=== PATIENT | male | born 1945 | race Caucasian/White ===

== ENCOUNTER 2016-06-21 06:14 | Observation (INO) | payer MEDICARE, OTHER ==
[~2016-06-21] VITALS: Ht 180.3 cm; Wt 85.7 kg
[2016-06-21 00:04] VITALS: BP 154/82
[2016-06-21] MEDS ORDERED: MORPHINE SULFATE 4 MG/ML CPJ (NOT FOR IM USE) IV STA (06:32)
[2016-06-21] MEDS ORDERED: SODIUM CHLORIDE 0.9% 1,000 ML IV ONE (06:32)
[2016-06-21] MEDS ORDERED: ONDANSETRON HCL 4MG/2ML VIAL IV STA (06:32)
[2016-06-21 07:00] LABS: BASOPHILS % 0.7 % (0.0-2.0); EOSINOPHILS % 0.1 % (0.0-5.0); HEMATOCRIT. 40.1 % (42.0-52.0); HEMOGLOBIN. 13.4 g/dL (14.0-18.0); LYMPHOCYTES % 8.4 % (20.0-50.0); MEAN CORPUSCULAR HGB CONC 33.4 g/dL (31.0-37.0); MEAN CORPUSCULAR VOLUME 80.6 fL (80.0-94.0); MEAN PLATELET VOLUME 7.4 fl (7.4-10.4); MONOCYTES % 1.7 % (2.0-8.0); NEUTROPHILS % 89.1 % (40.0-76.0); PLATELET 194 x1000/uL (130-400); RED BLOOD CELL COUNT 4.98 mill/uL (4.7-6.1); RED CELL DISTRIBUTION WIDTH 14.2 % (11.6-14.6); WHITE BLOOD COUNT 9.3 x1000/uL (4.5-11.0)
[2016-06-21 07:17] LABS: ALANINE AMINOTRANSFERASE 31 IU/L (13-61); ALBUMIN 3.6 g/dL (3.4-5.0); ANION GAP 12; CALCIUM 8.9 mg/dL (8.5-10.1); CARBON DIOXIDE 29 mEq/L (21-32); CHLORIDE 106 mEq/L (98-107); INDEX HEMOLYSI 1 (1-3); INDEX ICTERIC 1 (1-4); INDEX LIPEMIC 1 (1-3); INR 1.1; LIPASE 242 IU/L (73-393); NT PRO B-TYPE NATRIURETIC PEP 605 pg/mL (5-125); PROTHROMBIN TIME 11.1 sec; TROPONIN I 0.02 ng/mL (0.00-0.04); UREA NITROGEN BLOOD 20 mg/dL (7-21); eGFR > 60 mL/min (>60)
[2016-06-21] MEDS ORDERED: ENALAPRIL 0.625 MG in DEXTROSE 5% WATER 49.5 ML IV PRN (08:45)
[2016-06-21] MEDS ORDERED: ENALAPRIL 2.5MG/2ML VIAL 2ML IV ONE (09:45)
[2016-06-21 10:02] LABS: GLUCOSE URINE NEGATIVE (NEGATIVE); KETONES URINE NEGATIVE (NEGATIVE); LEUKOCYTE ESTERASE URINE NEGATIVE (NEGATIVE); NITRITE URINE NEGATIVE (NEGATIVE); OCCULT BLOOD URINE NEGATIVE (NEGATIVE); PROTEIN URINE NEGATIVE (NEGATIVE); SPECIFIC GRAVITY URINE 1.039 (1.005-1.030)
[2016-06-21 10:15] LABS: CLARITY URINE CLEAR (CLEAR); COLOR URINE YELLOW (YELLOW)
[2016-06-21] MEDS ORDERED: BUPIVACAINE HCL/PF 0.5% (5MG/ML) 10ML ONE ×2 (10:54→10:57)
[2016-06-21] MEDS ORDERED: FENTANYL CITRATE/PF 50MCG/ML 2ML VIAL IV PRN (11:45)
[2016-06-21] MEDS ORDERED: ONDANSETRON HCL 4MG/2ML VIAL IV PRN ×3 (11:45→15:15)
[2016-06-21] MEDS ORDERED: HYDROMORPHONE HCL/PF 2MG/ML CPJ IV PRN ×2 (11:45→15:15)
[2016-06-21] MEDS ORDERED: CEFAZOLIN SODIUM 1000MG/VIAL ONE (12:30)
[2016-06-21] MEDS ORDERED: EPHEDRINE SULFATE 50MG/ML VIAL ONE (12:42)
[2016-06-21] MEDS ORDERED: ONDANSETRON HCL 4MG/2ML VIAL ONE (12:49)
[2016-06-21] MEDS ORDERED: NEOSTIGMINE METHYLSULFATE 1MG/ML 10 ML VIAL ONE (12:49)
[2016-06-21] MEDS ORDERED: GLYCOPYRROLATE 0.2 MG/ML 2ML VIAL ONE (12:49)
[2016-06-21] MEDS ORDERED: FENTANYL CITRATE/PF 50MCG/ML 2ML VIAL ONE (13:01)
[2016-06-21] MEDS ORDERED: HYDROCODONE/ACETAMINOPHEN 5/325MG TABLET PO PRN ×2 (13:45)
[2016-06-21] MEDS ORDERED: MORPHINE SULFATE 2 MG/ML CPJ (NOT FOR IM USE) IV PRN (13:45)
[2016-06-21] MEDS ORDERED: MORPHINE SULFATE 4 MG/ML CPJ (NOT FOR IM USE) IV PRN (13:45)
[2016-06-21] MEDS ORDERED: SODIUM CHLORIDE 0.9% 10ML VIAL ONE (14:36)
[2016-06-21] MEDS ORDERED: IOHEXOL-300 100 ML BOTTLE ONE (14:36)
[2016-06-21] MEDS: DEXT 5%/0.45% NACL 1000ML 1,000 ML IV SCH (15:05)
[2016-06-21 16:10] VITALS: BP_SYST 133; BP_DIAS 62; BP_DIAS 69
[2016-06-21] MEDS: DEXT 5%/0.45% NACL KCL 20MEQ/L 1,000 ML IV SCH (18:36)
[2016-06-21 19:54] VITALS: BP 165/98
[2016-06-21] MEDS: SODIUM CHLORIDE 0.9% INJ 3ML FLUSH IVF SCH (22:00)
[2016-06-22 00:04] VITALS: BP 154/82
[2016-06-22] MEDS: DEXT 5%/0.45% NACL 1000ML 1,000 ML IV SCH (04:25)
[2016-06-22 04:58] VITALS: BP 145/70
[2016-06-22] MEDS: SODIUM CHLORIDE 0.9% INJ 3ML FLUSH IVF SCH ×2 (06:00→14:00)
[2016-06-22 06:29] LABS: BASOPHILS % 0.4 % (0.0-2.0); EOSINOPHILS % 0.9 % (0.0-5.0); HEMATOCRIT. 37.6 % (42.0-52.0); HEMOGLOBIN. 12.5 g/dL (14.0-18.0); LYMPHOCYTES % 13.5 % (20.0-50.0); MEAN CORPUSCULAR HEMOGLOBIN 26.9 pg (28.0-32.0); MEAN CORPUSCULAR HGB CONC 33.3 g/dL (31.0-37.0); MEAN CORPUSCULAR VOLUME 80.8 fL (80.0-94.0); MEAN PLATELET VOLUME 7.4 fl (7.4-10.4); MONOCYTES % 6.5 % (2.0-8.0); NEUTROPHILS % 78.7 % (40.0-76.0); PLATELET 188 x1000/uL (130-400); RED BLOOD CELL COUNT 4.66 mill/uL (4.7-6.1); RED CELL DISTRIBUTION WIDTH 13.9 % (11.6-14.6); WHITE BLOOD COUNT 8.8 x1000/uL (4.5-11.0)
[2016-06-22] MEDS: DEXT 5%/0.45% NACL KCL 20MEQ/L 1,000 ML IV SCH ×2 (07:16→14:00)
[2016-06-22 07:17] LABS: ANION GAP 14; CALCIUM 8.2 mg/dL (8.5-10.1); CARBON DIOXIDE 25 mEq/L (21-32); CHLORIDE 108 mEq/L (98-107); INDEX HEMOLYSI 1 (1-3); INDEX ICTERIC 1 (1-4); INDEX LIPEMIC 1 (1-3); UREA NITROGEN BLOOD 15 mg/dL (7-21)
[2016-06-22 07:22] LABS: ALANINE AMINOTRANSFERASE 22 IU/L (13-61); eGFR > 60 mL/min (>60)
[2016-06-22 08:00] VITALS: BP 138/87
[2016-06-22 12:00] VITALS: BP 145/83
[2016-06-22 16:00] VITALS: BP 145/79
[2016-06-22 20:18] VITALS: BP 148/87
== END 2016-06-22 20:45 | disposition home or self-care (01) ==
LOC: ER 06:15 → INTOOBSV 09:29 → ORIP 09:29 → 6EST 16:16
PROVIDERS: ADMIT Hospitalist; ATTEND Hospitalist
DX: K43.0 Incisional hernia with obstruction, without gangrene (principal); I10 Essential (primary) hypertension; Z85.038 Personal history of other malignant neoplasm of large intestine; Z90.49 Acquired absence of other specified parts of digestive tract
CPT/HCPCS: 36415; 49561; 49568; 71010; 74177; 80053; 81003; 83690; 83880; 84484; 85025; 85610; 93005; 96374; 96375; 99285; A4216; C1781; G0378; J0171; J0690; J2270; J2405; J2710; J3010; J3490; J7030; Q9967; 96361